=== PATIENT | female | born 1945 | race Caucasian/White ===

== ENCOUNTER 2017-12-28 21:08 | Inpatient (IN) | payer MEDICARE ==
[~2017-12-28] VITALS: Ht 157.5 cm; Wt 52.2 kg
[2017-12-28 21:18] VITALS: BP 118/55
[2017-12-28] MEDS ORDERED: CARV12.52 PO (21:19)
[2017-12-28] MEDS ORDERED: RIVA10TA PO (21:19)
[2017-12-28] MEDS ORDERED: DIGO125T PO (21:19)
[2017-12-28] MEDS ORDERED: FURO20TA4 PO (21:19)
[2017-12-28] MEDS ORDERED: Z GUARD REMEDY PASTE 57 GM TUBE TOP PRN (21:30)
[2017-12-29] MEDS ORDERED: MIRALAX 17 GM POWD.PACK PO PRN
[2017-12-29] MEDS ORDERED: ACETAMINOPHEN 325 MG TABLET PO PRN
[2017-12-29] MEDS ORDERED: HYDROCODONE/APAP 5-325MG TABLET PO PRN
[2017-12-29 07:52] LABS: BASOPHILS % (AUTO) 0.4 % (0.0-2.0); EOSINOPHILS % (AUTO) 0.8 % (0.0-7.0); HEMATOCRIT 44.6 % (31.2-41.9); HEMOGLOBIN 14.4 g/dL (10.9-14.3); LYMPHOCYTES # (AUTO) 0.8 K/uL (20.0-40.0); LYMPHOCYTES % (AUTO) 13.3 % (20.5-51.5); MEAN CORPUSCULAR HEMOGLOBIN 30.1 uug (24.7-32.8); MEAN CORPUSCULAR HGB CONC 32 g/dL (32.3-35.6); MONOCYTES # (AUTO) 0.6 K/uL (2.0-10.0); MONOCYTES % (AUTO) 9.6 % (0.0-11.0); NEUTROPHILS # (AUTO) 4.6 K/uL (1.8-8.9); NEUTROPHILS % (AUTO) 75.9 % (38.5-71.5); PLATELET COUNT (AUTO) 119 K/uL (179-408); WHITE BLOOD COUNT (AUTO) 6.1 K/uL (3.8-11.8)
[2017-12-29 08:26] LABS: THYROID STIMULATING HORMONE 0.871 mIU/mL (0.358-3.740)
[2017-12-29 08:48] LABS: ALANINE AMINOTRANSFERASE 15 U/L (14-59); ALKALINE PHOSPHATASE 100 U/L (50-136); ASPARTATE AMINOTRANSFERASE 27 U/L (15-37); CARBON DIOXIDE 35 mmol/L (21-32); CHLORIDE 103 mmol/L (98-107); CHOLESTEROL 115 mg/dL (<200); CREATININE 0.6 mg/dL (0.6-1.3); GLUCOSE 94 mg/dL (74-106); HDL CHOLESTEROL 29 mg/dL (40-60); MAGNESIUM 1.8 mg/dL (1.8-2.4); PHOSPHOROUS 2.7 mg/dL (2.5-4.9); POTASSIUM 4.2 mmol/L (3.5-5.1); TRIGLYCERIDES 88 MG/DL (30-150); UREA NITROGEN, BLOOD 14 mg/dL (7-18); URIC ACID 2.4 mg/dL (2.6-6.0)
[2017-12-29] MEDS ORDERED: RIVAROXABAN 10 MG TABLET PO SCH (09:00)
[2017-12-29] MEDS ORDERED: CARVEDILOL 12.5 MG TABLET PO SCH (09:00)
[2017-12-29] MEDS: FUROSEMIDE 20 MG TABLET PO SCH (09:53)
[2017-12-29] MEDS: DIGOXIN 125 MCG TABLET PO SCH (09:55)
[2017-12-29] MEDS ORDERED: CARVEDILOL 6.25 MG TABLET PO SCH (18:00)
[2017-12-29] MEDS: RIVAROXABAN 15 MG TABLET PO SCH (18:33)
[2017-12-29 19:30] VITALS: BP 118/47
[2017-12-29] MEDS: CARVEDILOL 6.25 MG TABLET PO SCH ×2 (21:00→21:31)
[2017-12-29] MEDS: DOCUSATE SODIUM 100 MG CAPSULE PO SCH (21:11)
[2017-12-30] MEDS: DIGOXIN 125 MCG TABLET PO SCH (09:00)
[2017-12-30] MEDS: CARVEDILOL 6.25 MG TABLET PO SCH ×2 (09:00→21:07)
[2017-12-30 09:05] VITALS: BP 115/58
[2017-12-30] MEDS: FUROSEMIDE 20 MG TABLET PO SCH (10:08)
[2017-12-30] MEDS: RIVAROXABAN 15 MG TABLET PO SCH (18:26)
[2017-12-30 19:52] VITALS: BP 114/52
[2017-12-30] MEDS: DOCUSATE SODIUM 100 MG CAPSULE PO SCH (21:05)
[2017-12-31 08:07] VITALS: BP 116/66
[2017-12-31] MEDS: FUROSEMIDE 20 MG TABLET PO SCH (11:43)
[2017-12-31] MEDS: DIGOXIN 125 MCG TABLET PO SCH (11:44)
[2017-12-31] MEDS: CARVEDILOL 6.25 MG TABLET PO SCH ×2 (11:44→20:22)
[2017-12-31] MEDS ORDERED: MINERAL OIL/PETROLATUM,WHITE 57 GM TUBE TOP PRN (15:15)
[2017-12-31] MEDS: RIVAROXABAN 15 MG TABLET PO SCH (18:01)
[2017-12-31 20:14] VITALS: BP 126/60
[2017-12-31] MEDS: DOCUSATE SODIUM 100 MG CAPSULE PO SCH (20:25)
[2018-01-01 07:09] VITALS: BP 121/75
[2018-01-01] MEDS: CARVEDILOL 6.25 MG TABLET PO SCH ×2 (09:30→20:51)
[2018-01-01] MEDS: FUROSEMIDE 20 MG TABLET PO SCH (09:31)
[2018-01-01] MEDS: DIGOXIN 125 MCG TABLET PO SCH (09:31)
[2018-01-01] MEDS: RIVAROXABAN 15 MG TABLET PO SCH (17:30)
[2018-01-01] MEDS: DOCUSATE SODIUM 100 MG CAPSULE PO SCH (20:51)
[2018-01-02 07:30] VITALS: BP 117/59
[2018-01-02] MEDS: CARVEDILOL 6.25 MG TABLET PO SCH ×2 (09:00→21:16)
[2018-01-02] MEDS: FUROSEMIDE 20 MG TABLET PO SCH (09:40)
[2018-01-02] MEDS: DIGOXIN 125 MCG TABLET PO SCH (09:41)
[2018-01-02] MEDS: RIVAROXABAN 15 MG TABLET PO SCH (17:33)
[2018-01-02 20:30] VITALS: BP 134/67
[2018-01-02] MEDS: DOCUSATE SODIUM 100 MG CAPSULE PO SCH (21:14)
[2018-01-03] MEDS: CARVEDILOL 6.25 MG TABLET PO SCH ×2 (08:51→21:00)
[2018-01-03] MEDS: FUROSEMIDE 20 MG TABLET PO SCH (08:51)
[2018-01-03] MEDS: DIGOXIN 125 MCG TABLET PO SCH (08:51)
[2018-01-03] MEDS: RIVAROXABAN 15 MG TABLET PO SCH (17:40)
[2018-01-03 20:46] VITALS: BP 110/58
[2018-01-03] MEDS: DOCUSATE SODIUM 100 MG CAPSULE PO SCH (20:59)
[2018-01-04 08:43] VITALS: BP 120/69
[2018-01-04] MEDS: DIGOXIN 125 MCG TABLET PO SCH (09:14)
[2018-01-04] MEDS: FUROSEMIDE 20 MG TABLET PO SCH (09:14)
[2018-01-04] MEDS: CARVEDILOL 6.25 MG TABLET PO SCH ×2 (09:15→20:55)
[2018-01-04] MEDS: RIVAROXABAN 10 MG TABLET PO SCH (17:30)
[2018-01-04 20:15] VITALS: BP 102/50
[2018-01-04] MEDS: DOCUSATE SODIUM 100 MG CAPSULE PO SCH (20:54)
[2018-01-05 07:30] VITALS: BP 111/50
[2018-01-05] MEDS: FUROSEMIDE 20 MG TABLET PO SCH (09:04)
[2018-01-05] MEDS: CARVEDILOL 6.25 MG TABLET PO SCH ×2 (09:04→20:58)
[2018-01-05] MEDS: DIGOXIN 125 MCG TABLET PO SCH (09:05)
[2018-01-05 20:00] VITALS: BP 103/56
[2018-01-05] MEDS: RIVAROXABAN 10 MG TABLET PO SCH (20:11)
[2018-01-05] MEDS: DOCUSATE SODIUM 100 MG CAPSULE PO SCH (20:58)
[2018-01-06 07:52] VITALS: BP 115/57
[2018-01-06] MEDS: CARVEDILOL 6.25 MG TABLET PO SCH ×2 (09:00→20:29)
[2018-01-06] MEDS: MODAFINIL 100 MG TABLET PO SCH (09:27)
[2018-01-06] MEDS: DIGOXIN 125 MCG TABLET PO SCH (09:28)
[2018-01-06] MEDS: FUROSEMIDE 20 MG TABLET PO SCH (09:29)
[2018-01-06] MEDS: RIVAROXABAN 15 MG TABLET PO SCH (17:31)
[2018-01-06 19:30] VITALS: BP 114/57
[2018-01-06] MEDS: DOCUSATE SODIUM 100 MG CAPSULE PO SCH (20:29)
[2018-01-07 07:05] VITALS: BP 109/43
[2018-01-07] MEDS: MODAFINIL 100 MG TABLET PO SCH (09:25)
[2018-01-07] MEDS: CARVEDILOL 6.25 MG TABLET PO SCH ×2 (09:25→20:56)
[2018-01-07] MEDS: FUROSEMIDE 20 MG TABLET PO SCH (09:26)
[2018-01-07] MEDS: DIGOXIN 125 MCG TABLET PO SCH (09:26)
[2018-01-07] MEDS: RIVAROXABAN 15 MG TABLET PO SCH (16:39)
[2018-01-07 20:00] VITALS: BP 114/59
[2018-01-07] MEDS ORDERED: CADEXOMER IODINE 40 GM TUBE TOP SCH (20:30)
[2018-01-07] MEDS: DOCUSATE SODIUM 100 MG CAPSULE PO SCH (20:55)
[2018-01-08 08:39] VITALS: BP 114/53
[2018-01-08] MEDS: MODAFINIL 100 MG TABLET PO SCH (08:59)
[2018-01-08] MEDS: CARVEDILOL 6.25 MG TABLET PO SCH ×2 (09:02→20:21)
[2018-01-08] MEDS: FUROSEMIDE 20 MG TABLET PO SCH (09:02)
[2018-01-08] MEDS: DIGOXIN 125 MCG TABLET PO SCH (09:03)
[2018-01-08] MEDS ORDERED: VITAMINS A AND D OINT TP PRN (10:45)
[2018-01-08] MEDS: RIVAROXABAN 15 MG TABLET PO SCH (17:42)
[2018-01-08] MEDS: CLOTRIMAZOLE 1% CREAM 30 GM TUBE TOP SCH (17:43)
[2018-01-08 20:05] VITALS: BP 101/61
[2018-01-08] MEDS: DOCUSATE SODIUM 100 MG CAPSULE PO SCH (20:18)
[2018-01-09 08:24] VITALS: BP 124/55
[2018-01-09] MEDS: CARVEDILOL 6.25 MG TABLET PO SCH ×2 (09:00→21:05)
[2018-01-09] MEDS: FUROSEMIDE 20 MG TABLET PO SCH (09:00)
[2018-01-09] MEDS: MODAFINIL 100 MG TABLET PO SCH (09:07)
[2018-01-09] MEDS: CADEXOMER IODINE 40 GM TUBE TOP SCH ×2 (09:08→21:04)
[2018-01-09] MEDS: CLOTRIMAZOLE 1% CREAM 30 GM TUBE TOP SCH ×2 (09:08→17:11)
[2018-01-09] MEDS: DIGOXIN 125 MCG TABLET PO SCH (09:08)
[2018-01-09] MEDS: RIVAROXABAN 15 MG TABLET PO SCH (17:12)
[2018-01-09] MEDS ORDERED: HALOPERIDOL LACTATE 5 MG/1 ML VIAL IM ONE ×2 (19:15→19:30)
[2018-01-09 20:00] VITALS: BP 123/60
[2018-01-09] MEDS: DOCUSATE SODIUM 100 MG CAPSULE PO SCH (21:04)
[2018-01-10] MEDS: FUROSEMIDE 20 MG TABLET PO SCH (08:57)
[2018-01-10] MEDS: DIGOXIN 125 MCG TABLET PO SCH (08:57)
[2018-01-10] MEDS: MODAFINIL 100 MG TABLET PO SCH (08:57)
[2018-01-10] MEDS: CARVEDILOL 6.25 MG TABLET PO SCH ×2 (08:57→21:02)
[2018-01-10] MEDS: CLOTRIMAZOLE 1% CREAM 30 GM TUBE TOP SCH ×2 (08:58→17:08)
[2018-01-10] MEDS: CADEXOMER IODINE 40 GM TUBE TOP SCH ×2 (08:58→21:04)
[2018-01-10] MEDS: RIVAROXABAN 15 MG TABLET PO SCH (17:07)
[2018-01-10 20:00] VITALS: BP 118/56
[2018-01-10] MEDS: HALOPERIDOL 0.5 MG TABLET PO SCH (21:01)
[2018-01-10] MEDS: DOCUSATE SODIUM 100 MG CAPSULE PO SCH (21:01)
[2018-01-11 08:00] VITALS: BP 113/60
[2018-01-11] MEDS: CARVEDILOL 6.25 MG TABLET PO SCH ×2 (09:00→21:00)
[2018-01-11] MEDS: MODAFINIL 100 MG TABLET PO SCH (09:41)
[2018-01-11] MEDS: CLOTRIMAZOLE 1% CREAM 30 GM TUBE TOP SCH ×2 (09:42→17:02)
[2018-01-11] MEDS: FUROSEMIDE 20 MG TABLET PO SCH (09:42)
[2018-01-11] MEDS: DIGOXIN 125 MCG TABLET PO SCH (09:47)
[2018-01-11] MEDS: CADEXOMER IODINE 40 GM TUBE TOP SCH ×2 (09:48→21:00)
[2018-01-11] MEDS: RIVAROXABAN 15 MG TABLET PO SCH (17:02)
[2018-01-11 20:13] VITALS: BP 110/60
[2018-01-11] MEDS: DOCUSATE SODIUM 100 MG CAPSULE PO SCH (20:57)
[2018-01-11] MEDS: HALOPERIDOL 0.5 MG TABLET PO SCH (20:57)
[2018-01-12 08:00] VITALS: BP 115/70
[2018-01-12] MEDS: CARVEDILOL 6.25 MG TABLET PO SCH ×2 (08:52→20:46)
[2018-01-12] MEDS: FUROSEMIDE 20 MG TABLET PO SCH (08:52)
[2018-01-12] MEDS: DIGOXIN 125 MCG TABLET PO SCH (08:52)
[2018-01-12] MEDS: CADEXOMER IODINE 40 GM TUBE TOP SCH ×2 (09:13→20:49)
[2018-01-12] MEDS: CLOTRIMAZOLE 1% CREAM 30 GM TUBE TOP SCH ×2 (09:13→17:04)
[2018-01-12] MEDS: RIVAROXABAN 15 MG TABLET PO SCH (17:05)
[2018-01-12 19:30] VITALS: BP 98/53
[2018-01-12] MEDS: HALOPERIDOL 0.5 MG TABLET PO SCH (20:49)
[2018-01-12] MEDS: DOCUSATE SODIUM 100 MG CAPSULE PO SCH (20:49)
[2018-01-12 20:55] VITALS: BP 100/65
[2018-01-13 07:10] VITALS: BP 104/57
[2018-01-13 09:00] VITALS: BP 104/57
[2018-01-13] MEDS: CARVEDILOL 6.25 MG TABLET PO SCH (09:00)
[2018-01-13] MEDS: DIGOXIN 125 MCG TABLET PO SCH (09:06)
[2018-01-13] MEDS: FUROSEMIDE 20 MG TABLET PO SCH (09:06)
[2018-01-13] MEDS: CADEXOMER IODINE 40 GM TUBE TOP SCH (09:08)
[2018-01-13] MEDS: CLOTRIMAZOLE 1% CREAM 30 GM TUBE TOP SCH (09:10)
== END 2018-01-13 17:00 | DRG 91 ==
PROVIDERS: ADMIT Physical Medicine & Rehabilitation Pain Medicine; ATTEND Physical Medicine & Rehabilitation Pain Medicine
DX: G92 Toxic encephalopathy (principal); E43 Unspecified severe protein-calorie malnutrition; L89.150 Pressure ulcer of sacral region, unstageable; D68.59 Other primary thrombophilia; D69.6 Thrombocytopenia, unspecified; I11.0 Hypertensive heart disease with heart failure; G93.89 Other specified disorders of brain; I27.20 Pulmonary hypertension, unspecified; I50.32 Chronic diastolic (congestive) heart failure; F23 Brief psychotic disorder; B35.3 Tinea pedis; I48.91 Unspecified atrial fibrillation; E11.9 Type 2 diabetes mellitus without complications; I10 Essential (primary) hypertension; E03.9 Hypothyroidism, unspecified; Z95.0 Presence of cardiac pacemaker; E78.5 Hyperlipidemia, unspecified; F01.50 Vascular dementia, unspecified severity, without behavioral disturbance, psychotic disturbance, mood disturbance, and anxiety; I67.2 Cerebral atherosclerosis; I70.0 Atherosclerosis of aorta; L60.3 Nail dystrophy; L85.3 Xerosis cutis; M19.90 Unspecified osteoarthritis, unspecified site; M21.612 Bunion of left foot; M21.611 Bunion of right foot; Z79.01 Long term (current) use of anticoagulants; Z87.820 Personal history of traumatic brain injury; Z87.891 Personal history of nicotine dependence; Z90.710 Acquired absence of both cervix and uterus; Z88.8 Allergy status to other drugs, medicaments and biological substances
CPT/HCPCS: 36415; 70030-TC; 82306; 83735; 84100; 84443; 84550; 85025; 92523; 97110; 97112; 97116; 97165; 97530; 97535; A4663; J1630

== ENCOUNTER 2018-03-28 11:59 | Inpatient (IN) | payer MEDICARE ==
[~2018-03-28] VITALS: Ht 162.6 cm; Wt 59.0 kg
[~2018-03-28 11:59] MED LIST: CARV12.52 PO; DIGO125T PO; FURO20TA4 PO; RIVA10TA PO
[2018-03-28] MEDS ORDERED: PROT946L PO (12:19)
[2018-03-28] MEDS ORDERED: RISP0.253 PO (12:19)
[2018-03-28] MEDS ORDERED: CLOT15CR4 TP (12:19)
[2018-03-28] MEDS ORDERED: QUET25TA PO (12:19)
[2018-03-28] MEDS ORDERED: MULT1TAB11 PO (12:19)
[2018-03-28] MEDS ORDERED: LORAZEPAM 2 MG/1 ML VIAL IV ONE (12:30)
[2018-03-28] MEDS ORDERED: IV NORMAL SALINE 1000 ML BAG IV ONE (12:30)
[2018-03-28] MEDS ORDERED: LORAZEPAM 2 MG/1 ML VIAL ONE (12:36)
[2018-03-28] MEDS ORDERED: DILTIAZEM HCL 25 MG IV ONE ×2 (12:53→16:40)
[2018-03-28] MEDS ORDERED: DILTIAZEM HCL 25 MG IV IV ONE ×3 (13:00→16:45)
[2018-03-28 13:46] LABS: BASOPHILS % (AUTO) 0.5 % (0.0-2.0); EOSINOPHILS % (AUTO) 0.1 % (0.0-7.0); HEMOGLOBIN 14.1 g/dL (10.9-14.3); LYMPHOCYTES % (AUTO) 11.7 % (20.5-51.5); MEAN CORPUSCULAR HEMOGLOBIN 31.3 uug (24.7-32.8); MEAN CORPUSCULAR HGB CONC 33 g/dL (32.3-35.6); MEAN CORPUSCULAR VOLUME 95.7 fL (75.5-95.3); MONOCYTES # (AUTO) 0.8 K/uL (2.0-10.0); MONOCYTES % (AUTO) 9.6 % (0.0-11.0); NEUTROPHILS # (AUTO) 6.7 K/uL (1.8-8.9); NEUTROPHILS % (AUTO) 78.1 % (38.5-71.5); PLATELET COUNT (AUTO) 216 K/uL (179-408); RED BLOOD CELL COUNT(AUTO) 4.49 MIL/uL (3.63-4.92); WHITE BLOOD COUNT (AUTO) 8.6 K/uL (3.8-11.8)
[2018-03-28 14:12] LABS: CARBON DIOXIDE 25 mmol/L (21-32); CHLORIDE 101 mmol/L (98-107); CREATININE 0.6 mg/dL (0.6-1.3); GLUCOSE 84 mg/dL (74-106); POTASSIUM 4.6 mmol/L (3.5-5.1); UREA NITROGEN, BLOOD 18 mg/dL (7-18)
[2018-03-28 14:17] LABS: ALANINE AMINOTRANSFERASE 26 U/L (14-59); ALKALINE PHOSPHATASE 172 U/L (50-136); ASPARTATE AMINOTRANSFERASE 34 U/L (15-37); BILIRUBIN,DIRECT 0.5 mg/dL (0.0-0.2); BILIRUBIN,TOTAL 1.5 mg/dL (0.2-1.0); TOTAL PROTEIN, SERUM 6.8 g/dL (6.4-8.2)
[2018-03-28 14:42] LABS: *BILIRUBIN,URIN NEGATIVE (NEGATIVE); *BLOOD, URINE Trace-intact (NEGATIVE); *CLARITY,URINE SLIGHTLY HAZY (CLEAR); *COLOR,URINE DARK YELLOW (YELLOW); *KETONES,URINE NEGATIVE (NEGATIVE); *PROTEIN,URINE NEGATIVE (NEGATIVE); LEUKOCYTE ESTERASE ,URINE NEGATIVE (NEGATIVE); NITRITE, URINE NEGATIVE (NEGATIVE); PH,URINE 6.5 (5.0-8.0); UGLUCOSE NEGATIVE (NEGATIVE)
[2018-03-28 14:48] LABS: BACTERIA,URINE NONE SEEN /HPF (NONE SEEN); SQUAMOUS EPITHELIAL CELL,UR FEW /HPF (NONE SEEN); WBC,URINE 0-3 /HPF (0-3)
[2018-03-28 14:49] LABS: MUCUS,URINE FEW /LPF (0-FEW)
--- NOTE | 2018-03-28 15:12 | NUR ---
Call placed to [facility], Dr. Valdez will be paged.
[2018-03-28] MEDS ORDERED: LEVOFLOXACIN 500 MG/D5W 100ML PIGGYBACK IV ONE (15:30)
[2018-03-28] MEDS ORDERED: LEVOFLOXACIN 500 MG/D5W 100 ML ONE (15:35)
--- NOTE | 2018-03-28 15:36 | NUR ---
POLO speaking to Dr. Valdez
--- NOTE | 2018-03-28 19:38 | NUR ---
Pt. admitted to [facility] , under care of Dr. Connor Valdez. Belongs List completed. MRSA swab completed. report given to Dania NICE.
[2018-03-28] MEDS ORDERED: MORPHINE SULFATE 2 MG/1 ML DISP.SYRIN IV PRN (20:00)
[2018-03-28] MEDS ORDERED: METOPROLOL TARTRATE 5 MG/5 ML VIAL IVP PRN (20:00)
[2018-03-28] MEDS ORDERED: MAGNESIUM HYDROXIDE 30 ML LIQUID UDC PO PRN (20:00)
[2018-03-28] MEDS ORDERED: ACETAMINOPHEN 325 MG TABLET PO PRN (20:00)
[2018-03-28] MEDS ORDERED: LEVALBUTEROL HCL NEB 0.63 MG/3 ML NEBU NEB PRN (20:00)
[2018-03-28] MEDS: CARVEDILOL 12.5 MG TABLET PO SCH (20:00)
--- NOTE | 2018-03-28 20:15 | NUR ---
brought by kristopher brownlee intp rm 205.pt lethargic [email or web address]
[2018-03-28 20:23] VITALS: BP 123/77
--- NOTE | 2018-03-28 20:33 | NUR ---
CLINICAL PHARMACY NOTE:VANCOMYCIN DOSING Request for vancomycin dosing on 73 y/o female 5'4" 130lbs for pneumonia Temp 98.1 BUN 18 Scr 0.6 WBC 8.6 also on Zosyn start vancomycin 1gm ivpb q20hr estimated trough 15. Will order trough level prior to 4ht dose.
[2018-03-28] MEDS: risperiDONE 0.25 MG TABLET PO SCH (21:00)
[2018-03-28] MEDS: DOCUSATE SODIUM 100 MG CAPSULE PO SCH (21:00)
[2018-03-28] MEDS: VANCOMYCIN IV 1 G in PREMIXED 0 EACH IV SCH (21:39)
[2018-03-28] MEDS: PIPERACILLIN/TAZOBACTAM/D5W 3.375 G in PREMIXED 1 EACH IV SCH (21:39)
[2018-03-29] VITALS: BP 110/51
[2018-03-29 04:00] VITALS: BP 106/56
[2018-03-29] MEDS: PIPERACILLIN/TAZOBACTAM/D5W 3.375 G in PREMIXED 1 EACH IV SCH ×3 (05:59→21:00)
[2018-03-29 06:42] LABS: BASOPHILS # (AUTO) 0.1 K/uL (0.0-8.0); BASOPHILS % (AUTO) 1.1 % (0.0-2.0); EOSINOPHILS # (AUTO) 0.1 K/uL (0.0-0.7); EOSINOPHILS % (AUTO) 1.7 % (0.0-7.0); HEMOGLOBIN 12.5 g/dL (10.9-14.3); LYMPHOCYTES # (AUTO) 0.9 K/uL (20.0-40.0); LYMPHOCYTES % (AUTO) 17.7 % (20.5-51.5); MEAN CORPUSCULAR HEMOGLOBIN 31.6 uug (24.7-32.8); MEAN CORPUSCULAR HGB CONC 34 g/dL (32.3-35.6); MEAN CORPUSCULAR VOLUME 94.1 fL (75.5-95.3); MONOCYTES # (AUTO) 0.5 K/uL (2.0-10.0); NEUTROPHILS # (AUTO) 3.6 K/uL (1.8-8.9); NEUTROPHILS % (AUTO) 69.5 % (38.5-71.5); PLATELET COUNT (AUTO) 213 K/uL (179-408); RED BLOOD CELL COUNT(AUTO) 3.95 MIL/uL (3.63-4.92)
[2018-03-29 06:49] LABS: HEMATOCRIT 37.2 % (31.2-41.9); WHITE BLOOD COUNT (AUTO) 5.2 K/uL (3.8-11.8)
--- NOTE | 2018-03-29 07:00 | NUR ---
SLEPT MOST OF THE NIGHT, AFTER 4 AM WIDE AWAKE BUT CONFUSED. ATTEMPTED TO GIVE HER WATER BUT WAS UNABLE TO SWALLOW, SO MEDS HELD
[2018-03-29 07:34] VITALS: BP 115/66
[2018-03-29 07:38] LABS: ALANINE AMINOTRANSFERASE 22 U/L (14-59); ALKALINE PHOSPHATASE 134 U/L (50-136); ASPARTATE AMINOTRANSFERASE 27 U/L (15-37); BILIRUBIN,TOTAL 1.5 mg/dL (0.2-1.0); CARBON DIOXIDE 28 mmol/L (21-32); CHLORIDE 102 mmol/L (98-107); CHOLESTEROL 147 mg/dL (<200); CREATININE 0.7 mg/dL (0.6-1.3); GLUCOSE 86 mg/dL (74-106); HDL CHOLESTEROL 48 mg/dL (40-60); MAGNESIUM 1.7 mg/dL (1.8-2.4); PHOSPHOROUS 3.5 mg/dL (2.5-4.9); TOTAL PROTEIN, SERUM 5.6 g/dL (6.4-8.2); TRIGLYCERIDES 106 MG/DL (30-150); UREA NITROGEN, BLOOD 18 mg/dL (7-18)
[2018-03-29 07:54] LABS: IRON, SERUM 75 ug/dL (50-175)
--- NOTE | 2018-03-29 08:00 | NUR ---
RECEIVED IN BED VERY CONFUSED AND RESTLESS, PACED WITH UR AFIB CONTROLLED. NO PAIN OR SOB
[2018-03-29] MEDS: DIGOXIN 125 MCG TABLET PO SCH (08:52)
[2018-03-29] MEDS: CARVEDILOL 12.5 MG TABLET PO SCH ×2 (08:52→17:50)
[2018-03-29] MEDS: PANTOPRAZOLE SODIUM 40 MG TABLET.DR PO SCH (08:52)
[2018-03-29 08:54] LABS: THYROID STIMULATING HORMONE 1.424 mIU/mL (0.358-3.740)
[2018-03-29] MEDS ORDERED: RIVAROXABAN 10 MG TABLET PO SCH (09:00)
[2018-03-29] MEDS: QUETIAPINE FUMARATE 25 MG TABLET PO PRN (09:09)
--- NOTE | 2018-03-29 09:10 | NUR ---
CONTINUOUSLY SCREAMING CONFUSED X3 PRN SEROQUEL GIVEN
[2018-03-29 11:34] VITALS: BP 95/54
[2018-03-29] MEDS ORDERED: FUROSEMIDE 20 MG/2 ML VIAL IV SCH (12:00)
[2018-03-29] MEDS ORDERED: MAGNESIUM HYDROXIDE 30 ML LIQUID UDC PO ONE (12:00)
[2018-03-29] MEDS ORDERED: BISACODYL 10 MG SUPP.RECT RC ONE (12:00)
--- NOTE | 2018-03-29 12:00 | NUR ---
CALMED AND COOPERATIVE, LESS SCREAMING NOTED REMAINS AFIB ON MONITOR
[2018-03-29] MEDS: MAGNESIUM SULFATE/D5W 100 ML IV SCH ×2 (12:14→13:05)
[2018-03-29] MEDS ORDERED: MORPHINE SULFATE 4 MG/1 ML DISP.SYRIN IV PRN (13:45)
--- NOTE | 2018-03-29 14:49 | NUR ---
CLINICAL PHARMACY NOTE:VANCOMYCIN DOSING Continue for vancomycin dosing on 73 y/o female 5'4" 130lbs for pneumonia Temp 98.6 BUN 18 Scr 0.7 WBC 5.2 also on Zosyn Continue vancomycin 1gm ivpb q20hr estimated trough 15. Second dose today at 1700. Will order trough level prior to 4ht dose(not ordered yet).
[2018-03-29 15:34] VITALS: BP 119/68
--- NOTE | 2018-03-29 15:58 | NUR ---
SEEN BY CLOTH DOFFER SEE NOTES PATIENT REMANS SR ON MONITOR
[2018-03-29] MEDS ORDERED: BISACODYL 10 MG SUPP.RECT RC PRN (16:30)
[2018-03-29] MEDS ORDERED: MAGNESIUM HYDROXIDE 30 ML LIQUID UDC PO PRN (16:30)
[2018-03-29] MEDS: VANCOMYCIN IV 1 G in PREMIXED 0 EACH IV SCH (17:50)
[2018-03-29] MEDS: RIVAROXABAN 15 MG TABLET PO SCH (17:52)
[2018-03-29 19:00] VITALS: BP 141/68
--- NOTE | 2018-03-29 19:30 | NUR ---
Received patient laying comfortably in bed. No acute distress noted. A/O x 2-3 but forgetful. Patient appears anxious. Concern about her health. IV Abx infusing. On 02 2L NC. On air mattress. Pace maker on the left upper chest wall. Fine lungs sounds on the left. Right arm fracture covered with dressing and elevated. DVT pumps on. Noted pressure ulcers and redness on the buttocks and heels. Mepilex in place. Safety initiated. Call light within reach. Will continue to monitor.
[2018-03-29] MEDS: Z GUARD REMEDY PASTE 57 GM TUBE TOP SCH (20:48)
[2018-03-29] MEDS: risperiDONE 0.25 MG TABLET PO SCH (20:48)
[2018-03-29] MEDS: DOCUSATE SODIUM 100 MG CAPSULE PO SCH (20:48)
[2018-03-30 04:00] VITALS: BP 145/56
[2018-03-30] MEDS: PIPERACILLIN/TAZOBACTAM/D5W 3.375 G in PREMIXED 1 EACH IV SCH ×3 (05:26→21:56)
--- NOTE | 2018-03-30 05:39 | NUR ---
Patient slept intermittently t/o shift. No acute distress noted. A/O x 2-3 but forgetful. On 02 2L NC. On air mattress. Pace maker on the left upper chest wall. Fine lungs sounds on the left. Right arm fracture covered with dressing and elevated. DVT pumps on. Vital signs stable. Turned and repositioned Q2H. Heels afloat. Noted pressure ulcers and redness on the buttocks and heels. Mepilex in place. Small BM + 1. Comfort and safety measures maintained t/o shift.
[2018-03-30] MEDS: PANTOPRAZOLE SODIUM 40 MG TABLET.DR PO SCH (06:11)
[2018-03-30 06:30] LABS: BASOPHILS # (AUTO) 0.1 K/uL (0.0-8.0); BASOPHILS % (AUTO) 1.2 % (0.0-2.0); EOSINOPHILS # (AUTO) 0.1 K/uL (0.0-0.7); EOSINOPHILS % (AUTO) 2.5 % (0.0-7.0); HEMATOCRIT 37.5 % (31.2-41.9); HEMOGLOBIN 12.8 g/dL (10.9-14.3); LYMPHOCYTES # (AUTO) 1.1 K/uL (20.0-40.0); LYMPHOCYTES % (AUTO) 20.5 % (20.5-51.5); MEAN CORPUSCULAR HEMOGLOBIN 31.9 uug (24.7-32.8); MEAN CORPUSCULAR HGB CONC 34 g/dL (32.3-35.6); MEAN CORPUSCULAR VOLUME 93.8 fL (75.5-95.3); MONOCYTES # (AUTO) 0.7 K/uL (2.0-10.0); MONOCYTES % (AUTO) 12.2 % (0.0-11.0); NEUTROPHILS # (AUTO) 3.5 K/uL (1.8-8.9); NEUTROPHILS % (AUTO) 63.6 % (38.5-71.5); PLATELET COUNT (AUTO) 185 K/uL (179-408); WHITE BLOOD COUNT (AUTO) 5.4 K/uL (3.8-11.8)
[2018-03-30 06:51] LABS: ALANINE AMINOTRANSFERASE 17 U/L (14-59); ALKALINE PHOSPHATASE 124 U/L (50-136); ASPARTATE AMINOTRANSFERASE 27 U/L (15-37); BILIRUBIN,TOTAL 1.1 mg/dL (0.2-1.0); CARBON DIOXIDE 35 mmol/L (21-32); CHLORIDE 102 mmol/L (98-107); CREATININE 0.8 mg/dL (0.6-1.3); GLUCOSE 96 mg/dL (74-106); MAGNESIUM 2.2 mg/dL (1.8-2.4); PHOSPHOROUS 2.9 mg/dL (2.5-4.9); POTASSIUM 3.6 mmol/L (3.5-5.1); TOTAL PROTEIN, SERUM 5.5 g/dL (6.4-8.2); UREA NITROGEN, BLOOD 17 mg/dL (7-18)
[2018-03-30] MEDS: FUROSEMIDE 40 MG TABLET PO SCH (08:10)
[2018-03-30] MEDS: DIGOXIN 125 MCG TABLET PO SCH (08:14)
[2018-03-30] MEDS: CARVEDILOL 12.5 MG TABLET PO SCH ×2 (08:15→17:25)
[2018-03-30] MEDS: Z GUARD REMEDY PASTE 57 GM TUBE TOP SCH ×2 (08:17→21:56)
--- NOTE | 2018-03-30 09:00 | NUR ---
Pt is in no acute distress. Call light is within reach. Pt very confused and forgetful reoriented pt to time and place. Pt denies any c/o pain.
--- NOTE | 2018-03-30 09:43 | NUR ---
CLINICAL PHARMACY NOTE:VANCOMYCIN DOSING Continue for vancomycin dosing on 73 y/o female 5'4" 130lbs for pneumonia Temp 98 BUN 17 Scr 0.8 WBC 5.4 also on Zosyn Continue vancomycin 1gm ivpb q20hr estimated trough 15. third dose today at 1300. Trough ordered before 4th scheduled dose, due tomorrow at 0830. Will check level and adjust as needed. Will follow
[2018-03-30 11:30] VITALS: BP 98/50
[2018-03-30] MEDS: VANCOMYCIN IV 1 G in PREMIXED 0 EACH IV SCH (12:51)
[2018-03-30] MEDS: QUETIAPINE FUMARATE 25 MG TABLET PO PRN (12:57)
[2018-03-30] MEDS ORDERED: ALBUTEROL SULFATE 1.25 MG/3 ML NEBU NEB PRN (14:00)
--- NOTE | 2018-03-30 14:34 | NUR ---
The patient is confused and does not cooperate with the tech. only the right mediastinum is scanned. RN Phani noted.
[2018-03-30 16:03] VITALS: BP 118/57
[2018-03-30] MEDS: RIVAROXABAN 15 MG TABLET PO SCH (17:26)
--- NOTE | 2018-03-30 17:58 | NUR ---
Called [facility] spoke with CHARISSA sewer maintenance supervisor re: NEXT of KIN status MARSHA SIMON [phone] Family has been and pt's aunt cruzito doesnt want to make any decision for the patient. Per social worker school any procedure Decision needs to be made by PMD with Doctor to doctor agreement. Pt is in no acute distress. Pt remains very confused throughout the day. Call light is within reach.
[2018-03-30 19:00] VITALS: BP 114/63
--- NOTE | 2018-03-30 20:48 | NUR ---
Patient refuse to take 2100 medications despite explaining in great details the importance of each medications, its used for and side effects. She states "I don't want to take the medications". She states "she wants to talk to the Doctor in the morning". Wasted medications. Informed charge Nurse and will continue to monitor.
[2018-03-30] MEDS: LACTOBACILLUS RHAMNOSUS GG 1 EACH CAPSULE PO SCH ×2 (21:00→21:55)
[2018-03-30] MEDS: DOCUSATE SODIUM 100 MG CAPSULE PO SCH ×2 (21:00→21:55)
[2018-03-30] MEDS: risperiDONE 0.25 MG TABLET PO SCH ×2 (21:00→21:56)
--- NOTE | 2018-03-30 23:16 | NUR ---
Received patient laying comfortably in bed. No acute distress noted. A/O x 2-3 but forgetful. Very difficult to re-direct. Ask too much questions and is suspicious. Patient appears anxious. Concern about her medications. IV Abx. On 02 2L NC. On air mattress. Pace maker on the left upper chest wall. Diminished lungs sounds on the left. IV on the right FA patent and intact. Left arm fracture covered with dressing and elevated. Neuro checks completed. Capillary refill < 3 secs. Pulses present and strong. DVT pumps on. Noted pressure ulcers and redness on the buttocks and heels. Heels afloat. Mepilex in place. Safety initiated. Call light within reach. Will continue to monitor.
[2018-03-31 04:00] VITALS: BP 115/64
[2018-03-31] MEDS: PIPERACILLIN/TAZOBACTAM/D5W 3.375 G in PREMIXED 1 EACH IV SCH ×3 (05:18→22:11)
--- NOTE | 2018-03-31 05:44 | NUR ---
Patient slept well. Remains A/O x 2-3 but forgetful. Very difficult to re-direct. Ask too much questions and is suspicious. Patient appears anxious. Concern about her medications. Refused her 2100 meds last night. IV Abx infusing. On 02 2L NC. On air mattress. Pace maker on the left upper chest wall. Diminished lungs sounds on the left. Left arm fracture covered with dressing and elevated. Neuro checks completed. Capillary refill < 3 secs. Pulses present and strong. DVT pumps on. Noted pressure ulcers and redness on the buttocks and heels. Heels afloat. Mepilex in place. Vital signs stable. Safety and comfort measures maintained t/o shift. Turn and repositioned Q2H. Small BM x 1. Urinating well. All needs met.
[2018-03-31] MEDS: PANTOPRAZOLE SODIUM 40 MG TABLET.DR PO SCH (06:43)
[2018-03-31 08:23] LABS: BASOPHILS # (AUTO) 0.1 K/uL (0.0-8.0); BASOPHILS % (AUTO) 1.5 % (0.0-2.0); EOSINOPHILS # (AUTO) 0.1 K/uL (0.0-0.7); EOSINOPHILS % (AUTO) 2.4 % (0.0-7.0); HEMATOCRIT 37.4 % (31.2-41.9); HEMOGLOBIN 12.5 g/dL (10.9-14.3); LYMPHOCYTES # (AUTO) 1.3 K/uL (20.0-40.0); LYMPHOCYTES % (AUTO) 27.7 % (20.5-51.5); MEAN CORPUSCULAR HEMOGLOBIN 31.4 uug (24.7-32.8); MEAN CORPUSCULAR HGB CONC 34 g/dL (32.3-35.6); MEAN CORPUSCULAR VOLUME 93.9 fL (75.5-95.3); MONOCYTES # (AUTO) 0.7 K/uL (2.0-10.0); MONOCYTES % (AUTO) 15.1 % (0.0-11.0); NEUTROPHILS # (AUTO) 2.5 K/uL (1.8-8.9); NEUTROPHILS % (AUTO) 53.3 % (38.5-71.5); PLATELET COUNT (AUTO) 190 K/uL (179-408); RED BLOOD CELL COUNT(AUTO) 3.98 MIL/uL (3.63-4.92); WHITE BLOOD COUNT (AUTO) 4.7 K/uL (3.8-11.8)
--- NOTE | 2018-03-31 08:30 | NUR ---
Pt is very anxious and stating she needs something for anxiety. I need to move up now, now. Pt keeps repeating himself. Attempted to decreased stimuli non effective. Distraction not effective. Seroquel given to calm pt down.
[2018-03-31 08:33] LABS: ALANINE AMINOTRANSFERASE 16 U/L (14-59); ALKALINE PHOSPHATASE 120 U/L (50-136); ASPARTATE AMINOTRANSFERASE 21 U/L (15-37); CARBON DIOXIDE 36 mmol/L (21-32); CHLORIDE 101 mmol/L (98-107); CREATININE 0.7 mg/dL (0.6-1.3); GLUCOSE 90 mg/dL (74-106); PHOSPHOROUS 2.8 mg/dL (2.5-4.9); POTASSIUM 3.5 mmol/L (3.5-5.1); TOTAL PROTEIN, SERUM 5.6 g/dL (6.4-8.2); UREA NITROGEN, BLOOD 15 mg/dL (7-18)
[2018-03-31] MEDS: CARVEDILOL 12.5 MG TABLET PO SCH ×2 (08:38→17:39)
[2018-03-31] MEDS: LACTOBACILLUS RHAMNOSUS GG 1 EACH CAPSULE PO SCH ×2 (08:39→22:11)
[2018-03-31] MEDS: QUETIAPINE FUMARATE 25 MG TABLET PO PRN (08:39)
[2018-03-31] MEDS: FUROSEMIDE 40 MG TABLET PO SCH (08:39)
[2018-03-31] MEDS: DIGOXIN 125 MCG TABLET PO SCH (08:39)
[2018-03-31 09:14] LABS: NEUTROPHILS % (MANUAL) 0 % (42-75)
[2018-03-31] MEDS ORDERED: VANCOMYCIN IV 1 G in PREMIXED 0 EACH IV SCH (11:00)
--- NOTE | 2018-03-31 11:00 | NUR ---
Pt much calmer now Dr. Steen here to see pt aware of pleural effusion on left side of lung. Ordered thoracentesis. Notified Dr steen pt is incapacitated and would need dr joey fishman for pat. Pt very forgetfulll and needs frequent prompting on year and place. Pt is in no acute distress.
[2018-03-31 11:03] VITALS: BP 110/66
[2018-03-31] MEDS: Z GUARD REMEDY PASTE 57 GM TUBE TOP SCH ×2 (11:15→21:00)
--- NOTE | 2018-03-31 11:53 | NUR ---
WOUND CARE CONSULT: PT PRESENTS WITH LEFT ARM ORTHOPEDIC DRESSING (DRY AND INTACT), SACRAL SCARRING AND VERY RED RASH TO BUTTOCKS AND PERINEUM, PRESENT ON ADMISSION. PT ON FIRST STEP MATTRESS. ALL SKIN PROTECTION AND SKIN CARE RECOMMENDATIONS DISCUSSED WITH NURSING STAFF. DEFER TO ORTHO FOR LEFT ARM. LEFT ARM ELEVATED ON PILLOW. CURRENT PARVIN SCORE IS 13. WILL SEE PRN. AVERY IN AGREEMENT WITH PLAN OF CARE. Addendum: 03/31/18 at 1157 by TALAT BARRETO RN Amended: Links added.
[2018-03-31] MEDS: CLOTRIMAZOLE/BETAMET DIPROP CREAM 15 GM TUBE TOP SCH ×2 (12:00→21:00)
[2018-03-31] MEDS ORDERED: POTASSIUM CHLORIDE 20 MEQ POWDER PACKET PO ONE (12:30)
[2018-03-31 15:21] VITALS: BP 104/56
[2018-03-31] MEDS: RIVAROXABAN 15 MG TABLET PO SCH (17:39)
--- NOTE | 2018-03-31 18:30 | NUR ---
iNCAPACITATED CONSENT SIGNED BY DR ELY. pT IS IN NO ACUTE DISTRESS. cALL LIGHT IS WITHIN REACH.
--- NOTE | 2018-03-31 19:30 | NUR ---
Received patient laying comfortably in bed. Asleep. On 02 2L NC. On air mattress. Pace maker on the left upper chest wall. IV TKO on the right hand patent and intact. Right arm fracture covered with dressing and elevated. DVT pumps on. Noted pressure ulcers and redness on the buttocks and heels. Mepilex in place. Safety initiated. Call light within reach. Will continue to monitor.
[2018-03-31 20:00] VITALS: BP 98/56
[2018-03-31] MEDS ORDERED: NORMAL SALINE FLUSH 10 ML DISP.SYRIN ONE (22:06)
[2018-03-31] MEDS ORDERED: SWABABLE VALVE TRANSFER SET EA MC ONE (22:06)
[2018-03-31] MEDS ORDERED: IV NORMAL SALINE 100 ML ONE (22:06)
[2018-03-31] MEDS ORDERED: IOHEXOL 350 100 ML INFUS..BTL ONE (22:06)
[2018-03-31] MEDS: risperiDONE 0.25 MG TABLET PO SCH (22:11)
[2018-03-31] MEDS: DOCUSATE SODIUM 100 MG CAPSULE PO SCH (22:11)
--- NOTE | 2018-03-31 22:46 | NUR ---
Patient was taken to CT in stable condition.
--- NOTE | 2018-03-31 23:30 | NUR ---
Patient back from CT in stable condition. Placed patient back on O2 2L NC. DVT pumps placed on bilateral legs. Will continue to monitor.
[2018-04-01] MEDS: PIPERACILLIN/TAZOBACTAM/D5W 3.375 G in PREMIXED 1 EACH IV SCH ×2 (05:08→13:31)
[2018-04-01 05:37] VITALS: BP 103/54
--- NOTE | 2018-04-01 05:38 | NUR ---
Patient slept well. Remains A/O x 2-3 but very forgetful. Very difficult to re-direct. Ask too much questions. IV Abx infusing. On 02 2L NC. On air mattress. Pace maker on the left upper chest wall. Diminished lungs sounds on the left. Left arm fracture covered with dressing and elevated. Neuro checks completed. Capillary refill < 3 secs. Pulses present and strong. DVT pumps on. Noted pressure ulcers and redness on the buttocks and heels. Heels afloat. Lomotrin, Zguard and Mepilex in place. Vital signs stable. Safety and comfort measures maintained t/o shift. Turn and repositioned Q2H. Urinating well. All meds given as ordered. All needs met.
[2018-04-01] MEDS: PANTOPRAZOLE SODIUM 40 MG TABLET.DR PO SCH (06:03)
--- NOTE | 2018-04-01 06:42 | NUR ---
Manual disimpaction done. Removed small amount of soft brown stool. Tolerated well. Will continue to monitor.
[2018-04-01 07:04] LABS: BASOPHILS # (AUTO) 0.1 K/uL (0.0-8.0); EOSINOPHILS # (AUTO) 0.1 K/uL (0.0-0.7); EOSINOPHILS % (AUTO) 2.1 % (0.0-7.0); HEMATOCRIT 37.5 % (31.2-41.9); HEMOGLOBIN 12.6 g/dL (10.9-14.3); LYMPHOCYTES # (AUTO) 1.5 K/uL (20.0-40.0); LYMPHOCYTES % (AUTO) 29.6 % (20.5-51.5); MEAN CORPUSCULAR HEMOGLOBIN 31.5 uug (24.7-32.8); MEAN CORPUSCULAR HGB CONC 34 g/dL (32.3-35.6); MEAN CORPUSCULAR VOLUME 93.4 fL (75.5-95.3); MONOCYTES # (AUTO) 0.7 K/uL (2.0-10.0); MONOCYTES % (AUTO) 14.7 % (0.0-11.0); NEUTROPHILS # (AUTO) 2.5 K/uL (1.8-8.9); NEUTROPHILS % (AUTO) 51.6 % (38.5-71.5); PLATELET COUNT (AUTO) 188 K/uL (179-408); RED BLOOD CELL COUNT(AUTO) 4.01 MIL/uL (3.63-4.92); WHITE BLOOD COUNT (AUTO) 4.9 K/uL (3.8-11.8)
[2018-04-01 07:17] LABS: ALANINE AMINOTRANSFERASE 15 U/L (14-59); ALKALINE PHOSPHATASE 130 U/L (50-136); ASPARTATE AMINOTRANSFERASE 19 U/L (15-37); BILIRUBIN,TOTAL 0.9 mg/dL (0.2-1.0); CARBON DIOXIDE 33 mmol/L (21-32); CHLORIDE 101 mmol/L (98-107); CREATININE 0.7 mg/dL (0.6-1.3); GLUCOSE 86 mg/dL (74-106); PHOSPHOROUS 2.6 mg/dL (2.5-4.9); POTASSIUM 3.6 mmol/L (3.5-5.1); UREA NITROGEN, BLOOD 15 mg/dL (7-18)
--- NOTE | 2018-04-01 07:45 | NUR ---
Patient awake, periods of confusion. R IV line intact patent. HOB kept elevated. Skin intact. SCD's intact. Heart Rhythm regular
[2018-04-01] MEDS: CARVEDILOL 12.5 MG TABLET PO SCH (08:00)
[2018-04-01] MEDS: LACTOBACILLUS RHAMNOSUS GG 1 EACH CAPSULE PO SCH (08:12)
[2018-04-01] MEDS: FUROSEMIDE 40 MG TABLET PO SCH (08:13)
[2018-04-01] MEDS: DIGOXIN 125 MCG TABLET PO SCH (08:13)
[2018-04-01] MEDS: CLOTRIMAZOLE/BETAMET DIPROP CREAM 15 GM TUBE TOP SCH (08:19)
[2018-04-01] MEDS: Z GUARD REMEDY PASTE 57 GM TUBE TOP SCH (08:19)
--- NOTE | 2018-04-01 09:58 | NUR ---
patient seen and evaluated by MD. Patient seen by Physical Therapy for therapeutic exercises to increase functional capacity.
--- NOTE | 2018-04-01 10:34 | NUR ---
CT guided thoracentesis canceled. Addendum: 04/01/18 at 1035 by FATOU VALLE RN ordered by doctor montes
[2018-04-01 11:04] VITALS: BP 114/60
[2018-04-01] MEDS ORDERED: CLOTRIMAZOLE 1% CREAM 30 GM TUBE TOP SCH (14:45)
--- NOTE | 2018-04-01 15:08 | NUR ---
NEW ORDER TO DISCHARGE PATIENT TO [facility]. FACILITY CALLED AND REPORT GIVEN TO MYNOR NICE AT FACILITY
[2018-04-01 15:38] VITALS: BP 103/51
--- NOTE | 2018-04-01 15:56 | NUR ---
SHAYAN ARRIVED. TWO PERSON TRANSPORT PER [facility]. PATIENT TRANSFERRED TWO PERSON. REPORT GIVEN TO AMBULANCE STAFF. VS WITHIN NORMAL LIMITS. PATIENT NOTED WITH SMALL BLACK PURSE AT DISCHARGE TIME. BAG NOT NOTED DURING ADMISSION AND NOT ON PERSONAL BELONGINGS
--- NOTE | 2018-04-01 16:00 | NUR ---
STAFF AT [facility]. MYNOR NICE REQUEST IV LINE BE KEPT IN.
== END 2018-04-01 16:08 | DRG 177 ==
LOC: ER 12:03 → TELE-TD 19:44 → TELE 03-29 11:56 → MED 03-29 13:56
PROVIDERS: ADMIT Internal Medicine; ATTEND Nurse Practitioner Acute Care
DX: J15.6 Pneumonia due to other Gram-negative bacteria (principal); I50.33 Acute on chronic diastolic (congestive) heart failure; E43 Unspecified severe protein-calorie malnutrition; G93.40 Encephalopathy, unspecified; D68.9 Coagulation defect, unspecified; R17 Unspecified jaundice; I31.3 Pericardial effusion (noninflammatory); T81.4XXA Infection following a procedure, initial encounter; I11.0 Hypertensive heart disease with heart failure; I48.2 Chronic atrial fibrillation; Z79.01 Long term (current) use of anticoagulants; Z95.0 Presence of cardiac pacemaker; I08.3 Combined rheumatic disorders of mitral, aortic and tricuspid valves; Z68.22 Body mass index [BMI] 22.0-22.9, adult; M50.21 Other cervical disc displacement, high cervical region; M48.02 Spinal stenosis, cervical region; K56.41 Fecal impaction; R32 Unspecified urinary incontinence; L89.150 Pressure ulcer of sacral region, unstageable; I27.20 Pulmonary hypertension, unspecified; I69.398 Other sequelae of cerebral infarction; R62.7 Adult failure to thrive; I25.10 Atherosclerotic heart disease of native coronary artery without angina pectoris; F03.90 Unspecified dementia, unspecified severity, without behavioral disturbance, psychotic disturbance, mood disturbance, and anxiety; E83.42 Hypomagnesemia; I25.2 Old myocardial infarction; R73.03 Prediabetes; L22 Diaper dermatitis; M41.9 Scoliosis, unspecified; M81.0 Age-related osteoporosis without current pathological fracture; I70.0 Atherosclerosis of aorta; K76.89 Other specified diseases of liver; Z91.81 History of falling; Z87.820 Personal history of traumatic brain injury; Z79.899 Other long term (current) drug therapy; S00.83XA Contusion of other part of head, initial encounter; W19.XXXA Unspecified fall, initial encounter; Y92.129 Unspecified place in nursing home as the place of occurrence of the external cause; L89.629 Pressure ulcer of left heel, unspecified stage; B99.9 Unspecified infectious disease
CPT/HCPCS: 36415; 70030-TC; 70450; 71045; 71275; 72125; 72170; 73502; 82306; 83550; 83735; 84100; 84443; 85025; 85730; 87040; 93005; 93307; 93880; 97110; 97116; 97530; A4663; C1758; J1940; J1956; J2060; J2543; J3370; J3475; J3490; J7030; J7040; Q9967